=== PATIENT | female | born 1995 ===

== ENCOUNTER 2025-04-09 21:32 | Emergency (ER) | payer OTHER, SELFPAY ==
[2025-04-09 21:40] VITALS: BP 145/94; PULSE 76; RESP 18; TEMP 37.1; O2SAT 100; BMI 25.0
== END 2025-04-10 01:17 | disposition left against medical advice (07) ==
LOC: HO.ED 04-10 01:21
PROVIDERS: Emergency Provider Emergency Medicine
DX: H92.02 Otalgia, left ear (principal); Z53.21 Procedure and treatment not carried out due to patient leaving prior to being seen by health care provider
CPT/HCPCS: 99281